=== PATIENT | female | born 1990 | race Caucasian/White ===

== ENCOUNTER 2016-12-08 10:59 | Inpatient (IN) | payer OTHER ==
[~2016-12-08] VITALS: Ht 172.7 cm; Wt 98.0 kg
[~2016-12-08 10:59] MED LIST: NOMED; [UNRECOGNIZED DRUG - OTHER] PO
[2016-12-08] MEDS ORDERED: Oxytocin 10 Unit/mL Inj IM PRN (11:50)
[2016-12-08] MEDS ORDERED: Oxytocin 30 Units/500 mL LR 30 UNITS in IV Premix 1 EACH IV PRN (11:50)
[2016-12-08] MEDS ORDERED: Hemorrhage Kit, Post Partum XX ONE ×2 (11:50→18:10)
[2016-12-08] MEDS ORDERED: Carboprost 250 mCg/mL Inj IM PRN (11:50)
[2016-12-08] MEDS ORDERED: Methylergonovine 0.2 mg/mL Inj IM PRN (11:50)
[2016-12-08] MEDS ORDERED: Sodium Chloride LOK Flush 10 mL Syringe IVFLUSH PRN (11:50)
[2016-12-08 11:59] LABS: Mean Corpuscular Hemoglobin 27.5 pg (27.0-35.0); Mean Corpuscular Volume 82.5 fL (81-100)
[2016-12-08] MEDS: Lactated Ringer's 1,000 ML IV PRN ×2 (12:05→13:36)
[2016-12-08] MEDS ORDERED: Oxytocin 30 Units/500 mL LR Premix IV SCH (12:50)
[2016-12-08] MEDS ORDERED: Lactated Ringer's 500 ML IV ONE (15:18)
[2016-12-08] MEDS ORDERED: Lactated Ringer's 1,000 ML IV SCH ×2 (15:18→18:10)
[2016-12-08] MEDS ORDERED: Ondansetron 2 mg/mL 2 mL Inj IVPUSH PRN (15:20)
[2016-12-08] MEDS ORDERED: EPHEDrine Sulfate 50 mg/mL Inj IVPUSH PRN (15:20)
[2016-12-08] MEDS ORDERED: fentaNYL 2 mCg/mL-Bupiv 0.125% 100 ML EPIDURAL SCH (15:20)
[2016-12-08] MEDS ORDERED: Atropine 1 mg/10 mL (Code) Syringe IVPUSH PRN (15:20)
--- NOTE | 2016-12-08 15:20 | PCM.HPANE ---
Patient Data Surgeon Admitting Provider:Selina Bermudez MD Attending Provider:Selina Bermudez MD Primary Care Physician:Selina Bermudez MD Other Provider: Reason for Visit Early Labor EARLY LABOR Ht/WT & BMI Body Mass Index Allergies Coded Allergies: latex (Verified Allergy, Unknown, 09/30/16) Past Anesthesia History Anesthesia History: Denies:: Abnormal Airway, Difficult Intubation Diabetes History Hx Diabetes?: No Medications Hypertension Medication: No Home Meds Incl Beta Sayra: No Reported Medications Therapeutic Multivit/Minerals (Chewable Vitamins)1 Ea Tab1 Ea PO DAILY 06/18/10 No Historical Medication Ea Ref 0 06/09/09 History HEENT History: Denies:: Abnormal Airway Difficult Intubation Hx of Heart Problems?: No Hx of Respiratory Problem?: No Hx Neurologic Problems?: No Hx of GI Problems?: No Hx of Problems?: No HX of Peritoneal Dialysis: No Female Hx: Positive for:: Currently Hx Musculoskeletal Problems?: No Hx of Psycho/Social Problems?: No Hx Surgeries?: No (d&c) Hx Any Other Health Problems?: No Hx Diabetes: No Hx Alcohol Use: YesHx Substance Use: Yes Stop/Bang Treated for Sleep Apnea?: No Do You Have a CPAP Machine?: No Risk Assessment Category Category 1A: Patient has history of documented sleep apnea, and HAS NOT received any narcotic, sedative or anesthesia administration during this stay. Category 1B: Patient has history of documented sleep apnea, and HAS received any narcotic , sedative or anesthesia administration during this stay Category 2: Patient has SUSPECTED Obstructive Sleep Apnea, and HAS received any narcotic , sedative or anesthesia administration during this stay. Category 3: Patient has SUSPECTED Obstructive Sleep Apnea and HAS NOT received narcotic, sedative or anesthesia administration during this stay. Category 4: Outpatient in Procedural Areas with known sleep apnea or who screen positive for High Risk via the STOP/BANG questionnaire. Exam Exam General Appearance: Alert, Oriented X3, Cooperative, No Acute Distress HEENT/AIRWAY: MP 2 Lungs: Clear to Auscultation, Normal Air Movement Heart: Exam Unremarkable, Regular Rate/Rhythm, No Murmurs/Rubs/Gallops Meds/Labs/Diagnostics Labs Test 12/08/16 11:30 White Blood Count 7.5th/mm3 (3.8-10.1) Red Blood Count 4.73mil/mm3 (3.90-5.20) Hemoglobin 13.0g/dL (12.0-15.6) Hematocrit 39.0% (35.0-46.0) Mean Corpuscular Volume 82.5fL (81-100) Mean Corpuscular Hemoglobin 27.5pg (27.0-35.0) Mean Corpuscular Hemoglobin Concent 33.3% (32.0-37.0) Red Cell Distribution Width 14.6% (12.3-15.4) Platelet Count 64bil/L (150-400) Plan Impression Patient chart reviewed, patient interviewed and anesthestic plan with risks, benefits, and alternatives discussed, and informed consent obtained. ASA Physical Status: ASA1 Normal Healthy Anesthetic Plan: Epidural Bene/Risks/Altern/Consents: Yes HP Complete Prior to Induction: Yes Shaw Palumbo MD Dec 08, 2016 15:20
[2016-12-08] MEDS ORDERED: Sodium Chloride LOK Flush 10 mL Syringe IVFLUSH SCH (16:30)
[2016-12-08] MEDS ORDERED: Benzocaine (Dermoplast) 20% 60 Gm Spray TOPICAL PRN (18:10)
[2016-12-08] MEDS ORDERED: Witch Hazel-Glycerin Pads TOPICAL PRN (18:10)
[2016-12-08] MEDS ORDERED: HYDROcodone-APAP 5-325 mg Tablet PO PRN (18:10)
[2016-12-08] MEDS ORDERED: LANOlin HPA 7 Gm Ointment TOPICAL PRN (18:10)
--- NOTE | 2016-12-08 18:31 | PCM.HPOB ---
Subjective Referring Provider: Admitting Physician: Selina Bermudez MD Primary Care Physician: Selina Bermudez MD Attending Physician: Selina Bermudez MD Chief Complaint SROM at term History of Present History of Present Illness This is a multiparous 26 year old female with a scattered history. She had been at a [facility], seen by providers in [place] and then finally came to see me in the 3 rd trimester when the baby was breech. She was anxious. The baby turned spontaneously and she has since settled down to a less anxious approach. She is now SROM at 3 am today. She is admitted for labor management and potential labor augmentation. Her GBS is negative. OB History: (6), Para (5), Living (5) Past Family History Living Arrangement: with Family Genetic Screening/Counseling Genetic Screening/Counseling: Negative Review of Systems Constitutional: Y: Change of appitite, Chills, Dizziness, Fever, Malaise, Other , Pain, Sweats, Weakness, Weight loss Eyes: Denies: Blurred Vision, Conjunctive Inflammation, Double Vision, Eyelid Inflammation, Other, Pain, Redness, Vision Changes ENT: Denies: Dental Problems, Dysphagia, Ear Discharge, Ear Pain, Hoarseness, Membranes Dry, Nasal Congestion, Nose Discharge, Nose Pain, Other, Throat Pain, Tinnitus, Ulcers/Sores in Mouth Cardiovascular: Denies: Chest Pain, Edema, Orthopnea, Other, Palpitations, SOB while laying flat Respiratory: Denies: Cough, Cough with bloody sputum, Other, Pleuritic Chest Pain, Pleuritic Chest Pain, SOB with Exertion, Sputum, Wheezing Gastrointestinal: Denies: Abdominal Pain, Black tarry stools, Blood in stool ( red), Change in Appetite, Constipation, Diarrhea, Epigastric pain, Heartburn, Nausea, Other, Use of Laxatives, Vomiting Genitourinary: Denies: Anuria, Change in Frequency, Dysuria, Hematuria, Incontinence, Nocturia, Other, Retention Musculoskeletal: Denies: Back Pain, Deformity, Limitation of Function, Neck Pain, Other, Redness, Shoulder Pain, Swelling Skin/Breasts: Denies: Bruising, Discharge, Dry or Flakiness, Jaundice, Lesions , Masses, Mastalgia, Other, Rash, Scars, Ulcers Skin: Denies: Bruising, Dry or Flakiness, Jaundice, Lesions, Other, Rash, Scars , Ulcers Neurological: Denies: Change in Speech, Confusion, Dizziness, Incoordination, Numbness, Other, Seizures, Somnolence, Tremors, Weakness Psychologic: Reports: Anxious, Nervousness Endocrine: Denies: Blood Glucose Review, Change in Appitite, Diaphoresis, Excessive Thirst, Intolerent to Heat/Cold, Other, Recent A1C, Urinating frequently Hematologic: Denies: Abnormal bleeding, Adenopathy, Bruising, Other Allergy Coded Allergies: latex (Verified Allergy, Unknown, 09/30/16) Exam Constitutional: Well-developed HEENT: Atraumatic, PERRLA, EOMI Lungs: Clear to Auscultation Heart: Regular Rate/Rhythm, No Murmurs/Rubs/Gallops Abdomen: Gravid Lymphatic: Normal: Neck Palpation of Nodes Extremities: Warm, No Edema Neurological/Psychiatric: Alert Neuro: Grossly Neurologically Intact, No Clonus noted Labs/Diagnostics Maternal Blood Type: A Hx Rho(D) Immune Globulin: No Group B Strep Results: Negative Previous with GBS: Unknown Rubella: Immune OB Intrapartum Assessment/Plan Assessment Term with SROM and baseline high Anxiety. Admit for labor management and possible augmentation. Selina Bermudez MD Dec 08, 2016 18:26
--- NOTE | 2016-12-08 18:32 | PCM.OBVAG ---
Vaginal Delivery Date of Service Dec 08, 2016 Pre Operative Diagnosis Pre Operative Diagnosis Term Post Operative Diagnosis Post Operative Diagnosis with Pitocin Augmentation at 40 1/7 weeks EGA Procedure Procedure: Highly Anxious Multiparous Female at 40 1/7 Weeks EGA who experience SROM at home around 3 am today. She arrived for assessment at 11 am. She was 3.5 cm and ROM was confirmed. When she reached 10 hours without onset of labor she was placed on pitocin after an epidural was placed. She was very anxious throughout all of this with her HR in the 120 - 140 range consistently. The babies HR was reactive and reassuring. She reached 7 cm shortly after the epidural and then complete at about 5 pm. She pushed for 40-50 minutes delivery OP a large male . The baby was passed to the staff's care on the mothers chest. Apgars were high grade and the baby was vigorous / crying. He appears to be at least 8 pounds. There were no tears and the placenta delivered 10 minutes later with gentle tugging. The cord was 3 vessel. The placenta was intact and the uterus contracted nicely. EBL of 150 ml. The HGB was 13.0 this am. Blood type A-. TSH normal. HIV negative. Her HR continues rapid without any symptoms. Obstetical Procedure: Normal Spontaneous Vaginal Delivery Brokerage Office Manager/Digital Campaign Manager Provider and Digital Campaign Manager: Jean-Claude Bermudez MD Indication for Procedure Induction: SROM Findings Obstetrical Findings: Atkinson (Male), Cord (3 Vessel), Presentation (OP), Placenta (Intact/Normal), Perineal Laceration Analgesia/Medications Obstetrical Anesthesia: Epidural Specimen Specimens: Placenta IV Intake/Output Catheters: None Post Procedure Plan Post delivery Condition: Mom stable Selina Bermudez MD Dec 08, 2016 18:20
[2016-12-09 06:38] LABS: Mean Corpuscular Hemoglobin 27.3 pg (27.0-35.0); Mean Corpuscular Volume 83.6 fL (81-100)
--- NOTE | 2016-12-09 10:35 | PCM.DIOB ---
Obstetrical Disch Instruction Date of Service: Dec 09, 2016 Dates of Hospitalization Date of Hospital Admission Dec 08, 2016 at 11:33 Providers Admitting Physician: Selina Bermudez MD Primary Care Physician: Selina Bermudez MD Attending Physician: Selina Bermudez MD Discharge Diagnosis Discharge Diagnosis Day 1 status post Resolved tachycardia Post Operative diagnosis Day 1 status post Resolved tachycardia Problems: Diet Discharge Diet: No restrictions Activity Discharge Activity-General: Pelvic Rest for 6 weeks, Balance rest and activity Dressing and Incisional Care Hygiene: May shower Follow Up Plan Follow-up appointment: Weeks (1) Call your provider for: Fever or Chills, Shortness of breath, Heavy vaginal bleeding, Heavy bleeding, Epigastric pain, Excessive constipation, Vaginal discomfort, Red painful breasts Selina Bermudez MD Dec 09, 2016 10:35
[2016-12-09] MEDS ORDERED: HYDR-4003 PO (10:36)
[2016-12-09] MEDS ORDERED: IBUP800T28 PO (10:36)
--- NOTE | 2016-12-09 10:40 | PCM.DC.OB ---
Obstetrical Discharge Summary Date of Service Dec 09, 2016 Date of hospital admission Dec 08, 2016 at 11:33 Date of Discharge: Dec 09, 2016 Providers Admitting Physician: Selina Bermudez MD Primary Care Physician: Selina Bermudez MD Attending Physician: Selina Bermudez MD Diagnosis at Time of Discharge Day 1 status post Resolved tachycardia Problems: Invasive procedures Highly Anxious Multiparous Female at 40 1/7 Weeks EGA who experience SROM at home around 3 am today. She arrived for assessment at 11 am. She was 3.5 cm and ROM was confirmed. When she reached 10 hours without onset of labor she was placed on pitocin after an epidural was placed. She was very anxious throughout all of this with her HR in the 120 - 140 range consistently. The babies HR was reactive and reassuring. She reached 7 cm shortly after the epidural and then complete at about 5 pm. She pushed for 40-50 minutes delivery OP a large male . The baby was passed to the staff's care on the mothers chest. Apgars were high grade and the baby was vigorous / crying. He appears to be at least 8 pounds. There were no tears and the placenta delivered 10 minutes later with gentle tugging. The cord was 3 vessel. The placenta was intact and the uterus contracted nicely. EBL of 150 ml. The HGB was 13.0 this am. Blood type A-. TSH normal. HIV negative. Her HR continues rapid without any symptoms. Brief History and Physical: This is a multiparous 26 year old female with a scattered history. She had been at a [facility], seen by providers in [place] and then finally came to see me in the 3 rd trimester when the baby was breech. She was anxious. The baby turned spontaneously and she has since settled down to a less anxious approach. She is now SROM at 3 am today. She is admitted for labor management and potential labor augmentation. Her GBS is negative. Hospital Course: Doing well today without significant lochia. Mild pelvic pain. Walking and eating normally. Heart rate has normalized. EKG did not get done last night so will assume tachycardia was ST. TSH and T4 repeated today are normal. Heart regular rate and rhythm no murmur, lungs are clear to auscultation bilaterally, abdomen soft, uterus contracted, no ankle edema or calf tenderness Hydrocodone-Acetaminophen 5-325 mg (Hydrocodone-Acetaminophen 5-325 mg) 1 Each Tablet 1-2 TABLET PO Q4H PRN PRN For Pain Prescribed by: YOUSUF BERMUDEZ MD Ibuprofen (Ibuprofen) 800 Mg Tablet 800 MG PO Q6H PRN PRN For Pain Prescribed by: YOUSUF BERMUDEZ MD No Historical Medication (No Historical Medication) Ea (Reported) Therapeutic Multivit/Minerals (Chewable Vitamins) 1 Ea Tab 1 EA PO DAILY ( Reported) Disposition Follow up 1 week in office. Discharge Diet: No restrictions Discharge Activity-General: Pelvic Rest for 6 weeks, Try not to overdue, Balance rest and activity Selina Bermudez MD Dec 09, 2016 10:40
[2016-12-09 13:14] VITALS: BP 96/48; PULSE 82; RESP 18
== END 2016-12-09 14:00 | disposition home or self-care (01) | DRG 560 ==
LOC: FBCO 10:59 → FBC 11:33
PROVIDERS: ADMIT Family Medicine; ATTEND Family Medicine
PROC: 10E0XZZ Delivery of Products of Conception, External Approach (ICD-10-PCS; principal; 2016-12-08)
DX: O80 Encounter for full-term uncomplicated delivery (principal); Z37.0 Single live birth; Z3A.40 40 weeks gestation of pregnancy

== ENCOUNTER 2017-01-25 12:24 | Day surgery (SDC) | payer OTHER ==
[~2017-01-25] VITALS: Ht 172.7 cm; Wt 36.1 kg
[2017-01-25] VITALS (9 sets, daily range): BP systolic 106–131; BP diastolic 64–79; PULSE 60–100; RESP 15–24; O2SAT 98–100
[~2017-01-25 12:24] MED LIST changes: +Lactated Ringer's 1,000 ML IV SCH; -NOMED; -[UNRECOGNIZED DRUG - OTHER] PO
[2017-01-25] MEDS ORDERED: Neostigmine 1 mg/mL 10 mL Inj ONE ×2 (12:25)
[2017-01-25] MEDS ORDERED: Ondansetron 2 mg/mL 2 mL Inj ONE ×2 (12:25)
[2017-01-25] MEDS ORDERED: Rocuronium 10 mg/mL 5 mL Inj ONE ×2 (12:25)
[2017-01-25] MEDS ORDERED: Propofol 10,000 mCg/mL 20 mL Inj ONE ×2 (12:25)
[2017-01-25] MEDS ORDERED: Glycopyrrolate 0.2 MG/ML 1mL Inj ONE ×2 (12:25)
[2017-01-25] MEDS ORDERED: fentaNYL-PF 50 mCg/mL 2 mL Inj ONE (12:25)
[2017-01-25] MEDS ORDERED: Dexamethasone 4 mg/mL Inj ONE ×2 (12:25)
[2017-01-25] MEDS ORDERED: Lactated Ringer's 1,000 ML IV ONE (12:45)
[2017-01-25] MEDS ORDERED: NO HOME MEDICATIONS (13:25)
--- NOTE | 2017-01-25 14:48 | PCM.HPANE ---
Patient Data Date of Service: Jan 25, 2017 ([id number]) Surgeon Admitting Provider: Attending Provider:Cheyenne Sanabria MD Primary Care Physician:Selina Bermudez MD Other Provider:Georgie Dominguez Anesthesia Reason for Visit Desire For Sterilization Ht/WT & BMI Height (Feet): 5 Height (Inches): 8 Weight (Kilograms): 36.1 Body Mass Index 12.00 Allergies Coded Allergies: latex (Verified Allergy, Unknown, 01/25/17) Past Anesthesia History Anesthesia History: Denies:: Abnormal Airway, Anesthesia Reactions, Difficult Intubation Diabetes History Hx Diabetes?: No Medications Hypertension Medication: No Home Meds Incl Beta Sayra: No Reported Medications [No Home Medications] No Conflict Check 01/25/17 Discontinued Reported Medications Therapeutic Multivit/Minerals (Chewable Vitamins)1 Ea Tab1 Ea PO DAILY 06/18/10 No Historical Medication Ea Ref 0 06/09/09 Discontinued Scripts Ibuprofen 800 Mg [id number] Mg PO Q6H PRN For Pain #10 TABLET Prov:Selina Bermudez MD 12/09/16 Hydrocodone-Acetaminophen 5-325 mg 1 Each Tablet1-2 Tablet PO Q4H PRN For Pain # 10 TABLET Prov:Selina Bermudez MD 12/09/16 History HEENT History: Denies:: Abnormal Airway Difficult Intubation Hearing Problem Hx of Heart Problems?: No Cardiovascular History: Denies:: Abdominal Aortic Aneurism Chest Pain Edema Hypertension Hx of Respiratory Problem?: No Respiratory History: Denies:: Asthma COPD Emphysema Oxygen Administration Pneumonia Tuberculosis Use of C-PAP Machine Use of Inhalers / NEBS Hx Neurologic Problems?: No Neurological History: Denies:: Alzheimer's Disease CVA Headaches Multiple Sclerosis Parkinson's Disease Seizures TIA Hx of GI Problems?: No Gastrointestinal History: Denies:: Cirrhosis Gastroesphageal Reflux Gastrointestinal Bleeding Liver Disease Hx of Problems?: No Genitourinary History: Denies:: Kidney Stones HX of Peritoneal Dialysis: No Female Hx: Denies:: Currently Hx Musculoskeletal Problems?: No Musculoskeletal History: Denies:: Back Injury Fibromyalgia Joint Replacement Musculoskeletal Trauma Myasthenia Gravis Osteoarthritis Systemic Lupus Hx of Psycho/Social Problems?: No Hx Surgeries?: Yes (D+C) Hx Any Other Health Problems?: Yes Other History: Denies:: Cancer Thyroid Disease Hx Diabetes: No Hx Alcohol Use: YesHx Substance Use: YesHave You Smoked inLast 12 mo: Yes Stop/Bang P-Blood Pressure: treated: No B- Body Mass Index > 35 kg/m2: No A- Age over 50: No N- Neck Large Circumference: No G- Gender Male: No DONITA Risk Assessment: Low Risk, <3 Yes Risk Assessment Category Category 1A: Patient has history of documented sleep apnea, and HAS NOT received any narcotic, sedative or anesthesia administration during this stay. Category 1B: Patient has history of documented sleep apnea, and HAS received any narcotic , sedative or anesthesia administration during this stay Category 2: Patient has SUSPECTED Obstructive Sleep Apnea, and HAS received any narcotic , sedative or anesthesia administration during this stay. Category 3: Patient has SUSPECTED Obstructive Sleep Apnea and HAS NOT received narcotic, sedative or anesthesia administration during this stay. Category 4: Outpatient in Procedural Areas with known sleep apnea or who screen positive for High Risk via the STOP/BANG questionnaire. Exam Exam Vital Signs Vital Signs Date Time Temp Pulse Resp B/P Pulse Ox O2 Delivery O2 Flow Rate FiO2 01/25/17 12:45 36.1 100 16 126/79 98 Room Air General Appearance: Alert, Oriented X3, Cooperative HEENT/AIRWAY: MP 1 Lungs: Clear to Auscultation Heart: Exam Unremarkable Meds/Labs/Diagnostics Admission Meds Current Medications Lactated Ringer's (Lr) 1,000 ml @ ud STK-MED ONCE IV Last administered on 01/25t 12:45; Start 01/25/17 at 12:45; Stop 01/25/17 at 13:12; Status DC Plan Impression Patient chart reviewed, patient interviewed and anesthestic plan with risks, benefits, and alternatives discussed, and informed consent obtained. NPO Status: 2300 01/24 ASA Physical Status: ASA2 Mod Systemic Disease Anesthetic Plan: GA Bene/Risks/Altern/Consents: Yes HP Complete Prior to Induction: Yes Ted Trujillo MD Jan 25, 2017 14:48
[2017-01-25] MEDS ORDERED: Lactated Ringer's 1,000 ML IV SCH (14:49)
[2017-01-25] MEDS ORDERED: Lactated Ringer's 500 ML IV PRN (14:49)
[2017-01-25] MEDS ORDERED: Dexamethasone 4 mg/mL Inj IVPUSH PRN (14:50)
[2017-01-25] MEDS ORDERED: EPHEDrine Sulfate 50 mg/mL Inj IVPUSH PRN (14:50)
[2017-01-25] MEDS ORDERED: HYDROmorphone 1 mg/mL Inj IVPUSH PRN (14:50)
[2017-01-25] MEDS ORDERED: fentaNYL-PF 50 mCg/mL 2 mL Inj IVPUSH PRN (14:50)
[2017-01-25] MEDS ORDERED: Phenylephrine 10,000 mCg/mL Inj IVPUSH PRN (14:50)
[2017-01-25] MEDS ORDERED: Ondansetron 2 mg/mL 2 mL Inj IVPUSH PRN (14:50)
[2017-01-25] MEDS ORDERED: MetoCLOpramide 5 mg/mL 2 mL Inj IVPUSH PRN (14:50)
[2017-01-25] MEDS ORDERED: Bupivacaine 0.5%/EPI 50 mL Inj INFILTRATE ONE (16:00)
--- NOTE | 2017-01-25 16:41 | PCM.ANEP1 ---
Post Anesthesia Phase 1 PACU Phase 1 Assessment Date of Service: Jan 25, 2017 ([id number]) Vital Signs 113/66, 64, 24, 36.4, 100% Vital Signs Date Time Temp Pulse Resp B/P Pulse Ox O2 Delivery O2 Flow Rate FiO2 01/25/17 12:45 36.1 100 16 126/79 98 Room Air Anesthetic Administered: GA Level of Alertness: Sleepy, easy to arouse LI's with Equal Strength: Yes Pain: No Nausea or Vomiting: No Oxygen Delivery: Simple Mask Lungs: Clear to Auscultation Dermatome Level: Full Sensation Summary uneventful Ted Morris MD Jan 25, 2017 16:41
--- NOTE | 2017-01-25 16:41 | PCM.ANEP2 ---
Post Anesthesia Evaluation ASA/CMS Post Anesthesia VS in Patient's Normal Range?: Yes Resp Stable; Airway Patent?: Yes CV Function & Hydration Stable: Yes Mental Status Recovered?: Yes Pain control Satisfactory?: Yes N/V Control Satisfactory?: Yes Ted Trujillo MD Jan 25, 2017 16:41
--- NOTE | 2017-01-25 16:50 | PCM.SURGOP ---
Surgical Operative Report Date of Service: Jan 25, 2017 Pre Operative Diagnosis Sterilization Post Operative Diagnosis Sterilization Procedure: Laparoscopic bilateral tubal ligation using Filshie clips. Surgeon and Collections Manager: Surgeon: Cheyenne Sanabria MD Resident: Kait Dao DO PGY1 Indication for Procedure 27-year-old 7 para 5 who desires permanent sterilization Findings: Intraoperative findings showed a normal-appearing uterus fallopian tubes and ovaries bilaterally. Survey of the upper abdomen was normal. The appendix was not visualized. There was no perineal or abdominal adhesions appreciated today. Procedure Details The patient was taken the operating room where her general anesthesia was obtained without difficulty. She was placed in a lithotomy position in the [facility] and prepared and draped in the normal sterile fashion. A surgical timeout was performed. A laparoscopic bilateral tubal ligation using Filshie clips was then performed. The umbilicus was injected with 10 mL of half percent Marcaine with epinephrine. A varies needle was inserted the base of the patient's umbilicus into the patient's peritoneal cavity. Needle aspirate and water drop test were negative and confirmatory respectively. A pneumoperitoneum was obtained with CO2 gas to a pressure of 15 mmHg. An 11 mm skin incision was made at the base of patient's umbilicus and an 11 mm Applied trocar was inserted directly into the patient's peritoneal cavity using the Visiport function of the trocar. The above noted findings were appreciated. An acorn manipulator was placed in the patient's cervix at the beginning of the case. The patient was placed in Trendelenburg and the uterus was mobilized. The fallopian tubes were identified bilaterally and followed out to fimbriated end. A single Filshie clip was placed across the left and right fallopian tube approximately 3 cm from the cornual region. Good clip placement was confirmed. All instruments were then removed from the patient's peritoneal cavity and the pneumoperitoneum was released. The fascial incision was reapproximated with 0 Vicryl in a [id number] fashion. The skin was closed with 4-0 Monocryl subcutaneous fashion and Dermabond applied. All lap instrument and needle counts were correct 2 in the procedure the patient was taken to the recovery room awake and in good condition. Complications There were no periprocedural complications identified. Surgical Specimen Removed: No Specimen sent to Pathology: No Anesthetic Plan: GA Grafts, Implants: None Output, Estimated Blood Loss: 0 Blood Administration during will: No Catheters: None Cheyenne Sanabria MD Jan 25, 2017 16:50
--- NOTE | 2017-01-25 16:53 | PCM.DIGYN ---
Surgical Discharge Instruction Dates of Hospitalization Date of Hospital Admission 01/25/17 Providers Admitting Physician: Primary Care Physician: Selina Bermudez MD Attending Physician: Cheyenne Sanabria MD Diagnosis at Time of Discharge Diagnosis at time of discharge Sterilization with laparoscopic bilateral tubal ligation Problems: Diet Discharge Diet: No restrictions, Other (Advance diet as tolerated) Activity Discharge Activity-General: Try not to overdue, Activity as pain allows, No lifting >10 pounds for 4-6 weeks, No driving while taking narcotic Dressing and Incisional Care Dressing Care: Allow Steri Stripes to fall off, Remove outer dressing after 24 hrs Hygiene: May shower, DO NOT soak incision under water, NO bathtub, hot tub or whirlpool Additional Instructions Discharge Instructions Pelvic rest including no intercourse or tampon use for the next 2 weeks. For pain control you have been given a prescription for Percocet you may take 1 tab every 4 to 6 hours as needed for pain. Follow Up Plan Follow-up Provider (F9): Cheyenne Sanabria MD Follow-up appointment: Weeks (2) Call your provider for: Fever, Chills, Shortness of breath, Vomitting, Drainage at incision, Heavy vaginal bleeding, Wound redness, Increasing pain ALBAN DIEHL DO Jan 25, 2017 16:53
[2017-01-25] MEDS: oxyCODONE-Acetamin 5-325 mg Tablet PO PRN ×2 (17:25→19:05)
== END 2017-01-25 23:59 | disposition home or self-care (01) ==
LOC: SAS 12:24
PROVIDERS: ATTEND Obstetrics & Gynecology
DX: Z30.2 Encounter for sterilization (principal); F17.210 Nicotine dependence, cigarettes, uncomplicated
CPT/HCPCS: 58671; J2405; J7120